=== PATIENT | male | born 1940 | race African-American/Black ===

== ENCOUNTER 2023-01-21 00:29 | Inpatient (IN) | payer BC, MEDICAID ==
[~2023-01-21] VITALS: Ht 180.3 cm; Wt 98.0 kg
[2023-01-21 01:29] LABS: BASOPHILS % 1.2 % (0.0-2.0); EOSINOPHILS % 2.8 % (0.0-5.0); HEMOGLOBIN. 12.1 g/dL (14.0-18.0); LYMPHOCYTES % 32.5 % (20.0-50.0); MEAN CORPUSCULAR HEMOGLOBIN 29.5 pg (28.0-32.0); MEAN CORPUSCULAR HGB CONC 32.6 g/dL (31.0-37.0); MEAN CORPUSCULAR VOLUME 90.5 fL (80.0-94.0); MEAN PLATELET VOLUME 6.9 fl (7.4-10.4); MONOCYTES % 7.4 % (2.0-8.0); NEUTROPHILS % 56.1 % (40.0-76.0); PLATELET 266 x1000/uL (130-400); RED BLOOD CELL COUNT 4.09 mill/uL (4.7-6.1); RED CELL DISTRIBUTION WIDTH 12.8 % (11.6-14.6); WHITE BLOOD COUNT 7.7 x1000/uL (4.5-11.0)
[2023-01-21 01:32] LABS: ALANINE AMINOTRANSFERASE 11 IU/L (10-49); ALBUMIN 4.4 g/dL (3.2-4.8); ASPARTATE AMINOTRANSFERASE 20 IU/L (<34); BILIRUBIN TOTAL 0.5 mg/dL (0.1-1.0); CALCIUM 10.2 mg/dL (8.7-10.4); CARBON DIOXIDE 24 mEq/L (21-32); CHLORIDE 106 mEq/L (98-107); GLUCOSE 168 mg/dL (70-105); POTASSIUM 3.5 mEq/L (3.5-5.1); PROTEIN TOTAL 7.1 g/dL (6.0-8.3); SODIUM 141 mEq/L (136-145); TROPONIN I HIGH SENSITIVITY 32 ng/L (3.0-53); UREA NITROGEN BLOOD 16 mg/dL (9-23)
[2023-01-21] MEDS ORDERED: ASPIRIN 325MG EC TABLET PO ONE (02:15)
[2023-01-21] MEDS ORDERED: LORAZEPAM 1MG TABLET PO ONE ×2 (02:15→04:00)
[2023-01-21] MEDS ORDERED: HYDROCODONE/ACETAMINOPHEN 5/325MG TABLET PO ONE (04:00)
[2023-01-21] MEDS ORDERED: AMLODIPINE 5MG TABLET PO ONE (04:00)
[2023-01-21 04:24] LABS: TROPONIN I HIGH SENSITIVITY 181 ng/L (3.0-53)
[2023-01-21] MEDS ORDERED: LABETALOL HCL VIAL 20 MG/4 ML VIAL IV ONE (04:30)
[2023-01-21] MEDS ORDERED: LABETALOL 5MG/ML SYR 20 MG/4 ML SYRINGE IV NR (04:45)
[2023-01-21] MEDS ORDERED: GUAIFENESIN 200MG/10ML SUGAR FREE UDC PO PRN (06:00)
[2023-01-21] MEDS ORDERED: ACETAMINOPHEN 325MG TABLET PO PRN ×2 (06:00)
[2023-01-21] MEDS ORDERED: ONDANSETRON HCL 4MG/2ML INJ IV PRN (06:00)
[2023-01-21] MEDS ORDERED: IPRATROPIUM/ALBUTEROL 0.5-3(2.5)MG/3ML NEB HHN PRN (06:00)
[2023-01-21] MEDS ORDERED: DOCUSATE SODIUM 100MG CAPSULE PO PRN (06:00)
[2023-01-21] MEDS ORDERED: NALOXONE HCL 0.4MG/ML VIAL IV PRN (06:15)
[2023-01-21 09:00] VITALS: BP 115/73; PULSE 61; RESP 14; TEMP 99.1
[2023-01-21] MEDS ORDERED: RAMI10CA68 PO (09:33)
[2023-01-21] MEDS ORDERED: TAMS-11 PO (09:33)
[2023-01-21] MEDS ORDERED: TAMS-11 MT (09:33)
[2023-01-21] MEDS ORDERED: SIMV-43 PO (09:33)
[2023-01-21] MEDS ORDERED: APIX5TAB PO (09:33)
[2023-01-21] MEDS ORDERED: MELO-106 MT (09:33)
[2023-01-21] MEDS ORDERED: FINA-37 PO (09:33)
[2023-01-21] MEDS ORDERED: HYDR-4009 PO (09:33)
[2023-01-21] MEDS ORDERED: AMLO10TA4 PO (09:33)
[2023-01-21] MEDS: AMLODIPINE 10MG TABLET PO SCH (10:12)
[2023-01-21] MEDS: FINASTERIDE 5MG TABLET PO SCH (10:13)
[2023-01-21] MEDS: TAMSULOSIN HCL 0.4MG SR CAPSULE PO SCH (10:13)
[2023-01-21] MEDS: APIXABAN 5 MG TABLET PO SCH ×2 (10:13→17:53)
[2023-01-21] MEDS: HYDROCODONE/ACETAMINOPHEN 5/325MG TABLET PO PRN ×2 (10:19→17:53)
[2023-01-21 10:48] VITALS: BP 115/73; PULSE 61; RESP 14; TEMP 99.1
[2023-01-21 11:56] VITALS: BP 160/58; PULSE 65; RESP 15; TEMP 98.8
[2023-01-21 12:03] LABS: CREATINE KINASE 220 IU/L (46-171); IRON 84 ug/dL (65-175); TOTAL IRON BINDING CAPACITY 308 ug/dl (250-425)
[2023-01-21 12:09] LABS: TROPONIN I HIGH SENSITIVITY 834 ng/L (3.0-53)
[2023-01-21 16:00] VITALS: BP 173/62; PULSE 72; RESP 16; TEMP 97.3
[2023-01-21 16:48] LABS: TROPONIN I HIGH SENSITIVITY 527 ng/L (3.0-53)
[2023-01-21] MEDS: CLONIDINE 0.1MG TABLET PO PRN ×2 (17:53→23:58)
[2023-01-21] MEDS ORDERED: NITROGLYCERIN 0.4MG TABLET SL SL PRN (18:00)
[2023-01-21 20:00] VITALS: BP 150/59; PULSE 69; RESP 20; TEMP 97.5
[2023-01-21 20:10] LABS: HEPATITIS B SURFACE ANTIGEN NEGATIVE (Negative); HEPATITIS C AB NON REACTIVE (Neg) (Negative)
[2023-01-21] MEDS ORDERED: ATORVASTATIN CALCIUM 20MG TABLET PO SCH (21:00)
[2023-01-21] MEDS: FAMOTIDINE 20MG TABLET PO SCH (21:31)
[2023-01-21] MEDS: HYDROXYZINE 25MG TABLET PO PRN (21:31)
[2023-01-21 22:37] LABS: CREATINE KINASE 189 IU/L (46-171)
[2023-01-21 22:44] LABS: TROPONIN I HIGH SENSITIVITY 373 ng/L (3.0-53)
[2023-01-21 23:58] VITALS: BP 190/59; PULSE 65; RESP 18; TEMP 97.9
[2023-01-22 04:00] VITALS: BP 172/62; PULSE 65; RESP 19; TEMP 97.9
[2023-01-22 06:22] LABS: ALANINE AMINOTRANSFERASE 8 IU/L (10-49); ALBUMIN 3.7 g/dL (3.2-4.8); ASPARTATE AMINOTRANSFERASE 17 IU/L (<34); BILIRUBIN TOTAL 0.7 mg/dL (0.1-1.0); CALCIUM 9.2 mg/dL (8.7-10.4); CARBON DIOXIDE 29 mEq/L (21-32); CHLORIDE 106 mEq/L (98-107); CHOLESTEROL 166 mg/dL (<200); CREATININE 0.7 mg/dL (0.6-1.3); GLUCOSE 100 mg/dL (70-105); HDL CHOLESTEROL 41 mg/dL (>55); LDL CHOLESTEROL 107 mg/dL (5-100); POTASSIUM 3.3 mEq/L (3.5-5.1); PROTEIN TOTAL 5.9 g/dL (6.0-8.3); SODIUM 142 mEq/L (136-145); T4 FREE 1.19 ng/dL (0.89-1.76); THYROID STIMULATING HORMONE 1.25 uIU/mL (0.55-4.78); TRIGLYCERIDE 88 mg/dL (0-150); UREA NITROGEN BLOOD 10 mg/dL (9-23)
[2023-01-22 06:25] LABS: BASOPHILS % 0.8 % (0.0-2.0); HEMATOCRIT. 33.1 % (42.0-52.0); HEMOGLOBIN. 11.1 g/dL (14.0-18.0); LYMPHOCYTES % 29.4 % (20.0-50.0); MEAN CORPUSCULAR HEMOGLOBIN 29.7 pg (28.0-32.0); MEAN CORPUSCULAR HGB CONC 33.5 g/dL (31.0-37.0); MEAN CORPUSCULAR VOLUME 88.6 fL (80.0-94.0); MEAN PLATELET VOLUME 7.2 fl (7.4-10.4); NEUTROPHILS % 58.8 % (40.0-76.0); PLATELET 246 x1000/uL (130-400); RED BLOOD CELL COUNT 3.73 mill/uL (4.7-6.1); WHITE BLOOD COUNT 6.2 x1000/uL (4.5-11.0)
[2023-01-22] MEDS ORDERED: POTASSIUM CHLORIDE 20MEQ/PACKET PO NR (07:45)
[2023-01-22 08:00] VITALS: BP 171/73; PULSE 65; RESP 18; TEMP 97.2
[2023-01-22] MEDS: APIXABAN 5 MG TABLET PO SCH (08:18)
[2023-01-22] MEDS: TAMSULOSIN HCL 0.4MG SR CAPSULE PO SCH (08:19)
[2023-01-22] MEDS: LISINOPRIL 10MG TABLET PO SCH ×2 (08:20→20:57)
[2023-01-22] MEDS: FINASTERIDE 5MG TABLET PO SCH (08:20)
[2023-01-22] MEDS: AMLODIPINE 10MG TABLET PO SCH (08:20)
[2023-01-22] MEDS: ASPIRIN 81MG EC TABLET PO SCH (08:20)
[2023-01-22] MEDS ORDERED: FENTANYL CITRATE/PF 50MCG/ML 2ML VIAL ONE (10:28)
[2023-01-22] MEDS ORDERED: MIDAZOLAM HCL 2 MG/2 ML VIAL ONE (10:28)
[2023-01-22] MEDS: SODIUM CHLORIDE 0.45% 1,000 ML IV SCH (11:28)
[2023-01-22] MEDS ORDERED: ATROPINE SULFATE 1MG/10ML SYR IV PRN (11:30)
[2023-01-22] MEDS ORDERED: ACETAMINOPHEN 325MG TABLET PO PRN (11:30)
[2023-01-22 12:00] VITALS: BP 151/64; PULSE 62; RESP 18; TEMP 97.9
[2023-01-22 16:00] VITALS: BP 169/55; PULSE 72; RESP 18; TEMP 97.6
[2023-01-22] MEDS: CLONIDINE 0.1MG TABLET PO PRN (16:50)
[2023-01-22] MEDS: HYDROCODONE/ACETAMINOPHEN 5/325MG TABLET PO PRN (16:55)
[2023-01-22] MEDS ORDERED: ENOXAPARIN 100MG/ML SYR SUBCUT NR (17:15)
[2023-01-22 18:43] LABS: PROTHROMBIN TIME 11.1 sec (9.6-11.0)
[2023-01-22 20:00] VITALS: BP 129/43; PULSE 55; RESP 19; TEMP 98.1
[2023-01-22] MEDS ORDERED: DICL100G58 TP (20:39)
[2023-01-22] MEDS ORDERED: RAMI5CAP65 MT (20:39)
[2023-01-22] MEDS ORDERED: TIZA-204 PO (20:39)
[2023-01-22] MEDS ORDERED: SIMV-43 MT (20:39)
[2023-01-22] MEDS ORDERED: TAMS-11 MT (20:39)
[2023-01-22] MEDS ORDERED: HYDR-4350 MT (20:39)
[2023-01-22] MEDS ORDERED: FINA5TAB11 PO (20:39)
[2023-01-22] MEDS ORDERED: APIX5TAB MT (20:39)
[2023-01-22] MEDS ORDERED: AMLO10TA80 PO (20:39)
[2023-01-22] MEDS: ATORVASTATIN CALCIUM 20MG TABLET PO SCH (20:58)
[2023-01-22] MEDS: FAMOTIDINE 20MG TABLET PO SCH (20:58)
[2023-01-22] MEDS: HYDROXYZINE 25MG TABLET PO PRN (21:06)
[2023-01-22 23:06] LABS: PHOSPHORUS 3.2 mg/dL (2.5-4.9)
[2023-01-23] VITALS (8 sets, daily range): BP systolic 149–180; BP diastolic 43–59; PULSE 49–75; RESP 13–23; TEMP 97.9–99.1
[2023-01-23] MEDS: SODIUM CHLORIDE 0.45% 1,000 ML IV SCH ×2 (00:39→14:10)
[2023-01-23] MEDS ORDERED: ENOXAPARIN 100MG/ML SYR SUBCUT SCH (06:00)
[2023-01-23 07:25] LABS: BASOPHILS % 0.7 % (0.0-2.0); EOSINOPHILS % 2.6 % (0.0-5.0); HEMOGLOBIN. 10.7 g/dL (14.0-18.0); LYMPHOCYTES % 25.3 % (20.0-50.0); MEAN CORPUSCULAR HEMOGLOBIN 29.7 pg (28.0-32.0); MEAN CORPUSCULAR HGB CONC 32.5 g/dL (31.0-37.0); MEAN CORPUSCULAR VOLUME 91.3 fL (80.0-94.0); MEAN PLATELET VOLUME 6.9 fl (7.4-10.4); MONOCYTES % 9.3 % (2.0-8.0); NEUTROPHILS % 62.1 % (40.0-76.0); PLATELET 208 x1000/uL (130-400); RED BLOOD CELL COUNT 3.62 mill/uL (4.7-6.1); WHITE BLOOD COUNT 6.7 x1000/uL (4.5-11.0)
[2023-01-23] MEDS ORDERED: LIDOCAINE HCL 1% 20ML VIAL (Pyxis) INJ ONE (07:55)
[2023-01-23] MEDS ORDERED: IODIXANOL 320MG/ML 100 ML BOTTLE IV ONE ×2 (07:55→09:30)
[2023-01-23 07:58] LABS: CALCIUM 9.2 mg/dL (8.7-10.4); CARBON DIOXIDE 29 mEq/L (21-32); CHLORIDE 107 mEq/L (98-107); CREATININE 0.8 mg/dL (0.6-1.3); GLUCOSE 108 mg/dL (70-105); PHOSPHORUS 3.4 mg/dL (2.5-4.9); POTASSIUM 3.7 mEq/L (3.5-5.1); SODIUM 141 mEq/L (136-145); UREA NITROGEN BLOOD 14 mg/dL (9-23)
[2023-01-23] MEDS: ASPIRIN 81MG EC TABLET PO SCH (08:12)
[2023-01-23] MEDS: TAMSULOSIN HCL 0.4MG SR CAPSULE PO SCH (08:12)
[2023-01-23] MEDS: LISINOPRIL 10MG TABLET PO SCH ×2 (08:12→20:10)
[2023-01-23] MEDS: AMLODIPINE 10MG TABLET PO SCH (08:12)
[2023-01-23] MEDS: FINASTERIDE 5MG TABLET PO SCH (08:12)
[2023-01-23] MEDS ORDERED: DIPHENHYDRAMINE 50MG/ML VIAL ONE (08:23)
[2023-01-23] MEDS ORDERED: FENTANYL CITRATE/PF 50MCG/ML 2ML VIAL ONE ×2 (08:23→09:55)
[2023-01-23] MEDS ORDERED: MIDAZOLAM HCL 2 MG/2 ML VIAL ONE (08:23)
[2023-01-23] MEDS ORDERED: HEPARIN 1000 UNITS/ML 10ML ONE ×2 (08:30→09:07)
[2023-01-23 08:57] LABS: FOLIC ACID (FOLATE) SERUM 16.34 ng/mL (>5.38); VITAMIN B12 SERUM 350 pg/mL (211-911)
[2023-01-23] MEDS ORDERED: CLOPIDOGREL 75MG TABLET ONE (09:31)
[2023-01-23] MEDS ORDERED: ASPIRIN 325MG TABLET ONE (09:31)
[2023-01-23] MEDS ORDERED: HYDRALAZINE 20MG/ML VIAL ONE ×2 (10:01→10:13)
[2023-01-23] MEDS ORDERED: ACETAMINOPHEN 325MG TABLET PO PRN (10:30)
[2023-01-23] MEDS ORDERED: SODIUM CHLORIDE 0.45% 500 ML IV ONE (10:30)
[2023-01-23] MEDS ORDERED: ATROPINE SULFATE 1MG/10ML SYR IV PRN (10:30)
[2023-01-23] MEDS: HYDROCODONE/ACETAMINOPHEN 5/325MG TABLET PO PRN (12:07)
[2023-01-23] MEDS ORDERED: MORPHINE SULFATE 2 MG/ML CPJ (NOT FOR IM USE) IV ONE (12:45)
[2023-01-23] MEDS ORDERED: MORPHINE SULFATE 2 MG/ML CPJ (NOT FOR IM USE) IV PRN (12:45)
[2023-01-23] MEDS ORDERED: MORPHINE SULFATE 2 MG/ML CPJ (NOT FOR IM USE) IV NR (13:00)
[2023-01-23] MEDS: FAMOTIDINE 20MG TABLET PO SCH (20:10)
[2023-01-23] MEDS: ATORVASTATIN CALCIUM 20MG TABLET PO SCH (20:10)
[2023-01-23] MEDS: HYDROXYZINE 25MG TABLET PO PRN (22:31)
[2023-01-23] MEDS: CLONIDINE 0.1MG TABLET PO PRN (22:44)
[2023-01-24] VITALS: BP 168/66; PULSE 62; RESP 19; TEMP 98.2
[2023-01-24] MEDS: SODIUM CHLORIDE 0.45% 1,000 ML IV SCH (03:30)
[2023-01-24 04:00] VITALS: BP 171/59; PULSE 59; RESP 18; TEMP 98
[2023-01-24 05:59] LABS: BASOPHILS % 0.4 % (0.0-2.0); EOSINOPHILS % 1.1 % (0.0-5.0); HEMOGLOBIN. 10.1 g/dL (14.0-18.0); LYMPHOCYTES % 19.4 % (20.0-50.0); MEAN CORPUSCULAR HEMOGLOBIN 29.7 pg (28.0-32.0); MEAN CORPUSCULAR HGB CONC 32.7 g/dL (31.0-37.0); MEAN PLATELET VOLUME 6.8 fl (7.4-10.4); MONOCYTES % 8.2 % (2.0-8.0); NEUTROPHILS % 70.9 % (40.0-76.0); PLATELET 216 x1000/uL (130-400); RED BLOOD CELL COUNT 3.41 mill/uL (4.7-6.1); RED CELL DISTRIBUTION WIDTH 13.3 % (11.6-14.6); WHITE BLOOD COUNT 8.5 x1000/uL (4.5-11.0)
[2023-01-24 06:00] VITALS: BP 151/54; PULSE 80; RESP 22
[2023-01-24 06:04] LABS: CALCIUM 9.2 mg/dL (8.7-10.4); CARBON DIOXIDE 28 mEq/L (21-32); CHLORIDE 107 mEq/L (98-107); CREATININE 0.7 mg/dL (0.6-1.3); GLUCOSE 105 mg/dL (70-105); POTASSIUM 3.5 mEq/L (3.5-5.1); SODIUM 142 mEq/L (136-145); UREA NITROGEN BLOOD 13 mg/dL (9-23)
[2023-01-24] MEDS: HYDROCODONE/ACETAMINOPHEN 5/325MG TABLET PO PRN ×2 (06:22→11:47)
[2023-01-24 08:00] VITALS: BP 152/54; PULSE 66; RESP 16; TEMP 98.4
[2023-01-24] MEDS: FINASTERIDE 5MG TABLET PO SCH (08:27)
[2023-01-24] MEDS: ASPIRIN 81MG EC TABLET PO SCH (08:28)
[2023-01-24] MEDS: LISINOPRIL 10MG TABLET PO SCH (08:28)
[2023-01-24] MEDS: TAMSULOSIN HCL 0.4MG SR CAPSULE PO SCH (08:28)
[2023-01-24] MEDS: AMLODIPINE 10MG TABLET PO SCH (08:28)
[2023-01-24] MEDS ORDERED: APIXABAN 5 MG TABLET PO SCH (09:00)
[2023-01-24 12:00] VITALS: BP 146/53; PULSE 68; RESP 17; TEMP 98.2
[2023-01-24] MEDS ORDERED: LOSARTAN 25 MG TABLET PO SCH (12:30)
[2023-01-24] MEDS ORDERED: TAMS-11 PO (12:39)
[2023-01-24] MEDS ORDERED: AMLO10TA80 PO (12:39)
[2023-01-24] MEDS ORDERED: ATOR40TA70 PO (12:39)
[2023-01-24] MEDS ORDERED: ASPI-1406 PO (12:39)
[2023-01-24] MEDS ORDERED: LOSA25TA26 PO (12:39)
[2023-01-24] MEDS ORDERED: APIX5TAB PO (12:39)
[2023-01-24] MEDS ORDERED: FINA5TAB11 PO (12:39)
[2023-01-24 14:22] VITALS: BP 151/54; PULSE 66; TEMP 98.4; O2SAT 100
== END 2023-01-24 14:57 | disposition home or self-care (01) | DRG 321 ==
LOC: ER 00:29 → 7WST 04:47 → 3WST 01-23 10:56
PROVIDERS: ADMIT Internal Medicine; ATTEND Internal Medicine
PROC: 4A023N7 Measurement of Cardiac Sampling and Pressure, Left Heart, Percutaneous Approach (ICD-10-PCS; 2023-01-22)
PROC: B211YZZ Fluoroscopy of Multiple Coronary Arteries using Other Contrast (ICD-10-PCS; 2023-01-22)
PROC: 027036Z Dilation of Coronary Artery, One Artery with Three Drug-eluting Intraluminal Devices, Percutaneous Approach (ICD-10-PCS; principal; 2023-01-23)
PROC: B41FYZZ Fluoroscopy of Right Lower Extremity Arteries using Other Contrast (ICD-10-PCS; 2023-01-23)
DX: I25.10 Atherosclerotic heart disease of native coronary artery without angina pectoris (principal); I21.A1 Myocardial infarction type 2; I16.1 Hypertensive emergency; D50.9 Iron deficiency anemia, unspecified; E78.5 Hyperlipidemia, unspecified; I10 Essential (primary) hypertension; E11.9 Type 2 diabetes mellitus without complications; I48.91 Unspecified atrial fibrillation; N40.0 Benign prostatic hyperplasia without lower urinary tract symptoms; Z96.642 Presence of left artificial hip joint; E87.6 Hypokalemia; Z79.899 Other long term (current) drug therapy; Z79.01 Long term (current) use of anticoagulants; Z87.891 Personal history of nicotine dependence; Z79.82 Long term (current) use of aspirin; Z79.4 Long term (current) use of insulin; Z98.1 Arthrodesis status
CPT/HCPCS: 36415; 71045; 80048; 80053; 80061; 82550; 82607; 82728; 82746; 83036; 83540; 83550; 83735; 83880; 84100; 84439; 84443; 84484; 85025; 85347; 86705; 87340; 87426; 92928; 93005; 93306; 93454; 93458; 99285; C1725; C1760; C1769; C1874 ×2; C1887; C1893; J0360; J1200; J1644; J1650; J2250; J2270; J3010; J3490; Q9967